=== PATIENT | male | born 1975 | race Caucasian/White ===

== ENCOUNTER 2017-03-16 15:28 | Emergency (ER) | payer OTHER ==
--- NOTE | 2017-03-16 16:02 | EDM.PDOC ---
ED HPI GENERAL MEDICAL PROBLEM - General Chief Complaint: ENT Problem Stated Complaint: TOOTHACHE Time Seen by Provider: 03/16/17 15:39 Source of Information: Reports: Patient History Limitations: Reports: No Limitations - History of Present Illness INITIAL COMMENTS - FREE TEXT/NARRATIVE: HISTORY AND PHYSICAL: History of present illness: Patient is a 42-year-old male who presents to the emergency room with complaints of left-sided facial tingling and numbness. He says this has been occurring intermittently since . During that time he did lose a dental filling to the left upper jaw line. He states there has been some numbness and tingling to that localized area that goes into the cheek bone and temporal area. He states that he has not seen a dentist in over a year and does have old dental caries and "things that need to be taken care of" scar as dental work. He denies any fever, chills, change in vision, headache, neurological signs and symptoms such as weakness or facial drooping. His speech is clear and intact. Full strength to upper and lower extremities without any deficits noted. Full facial movements and, musculature intact. Review of systems: As per history of present illness and below otherwise all systems reviewed and negative. Past medical history: As per history of present illness and as reviewed below otherwise noncontributory. Surgical history: As per history of present illness and as reviewed below otherwise noncontributory. Social history: No reported history of drug or alcohol abuse. Family history: As per history of present illness and as reviewed below otherwise noncontributory. Physical exam: General: Well-developed and well-nourished 42-year-old male. Alert and oriented. Nontoxic appearing and in no acute distress. HEENT: Atraumatic, normocephalic, pupils reactive, negative for conjunctival pallor or scleral icterus, mucous membranes moist, throat clear, neck supple, nontender, trachea midline. Patient has poor dental hygiene and is missing #9, dental decay to #12-13. Patient has no TMJ symptoms. No temporal artery tenderness with palpation. No mastoid tenderness with palpation. Facial muscles are intact and without deficits. Speech is clear and Lungs: Clear to auscultation, breath sounds equal bilaterally, chest nontender. Heart: S1S2, regular rate and rhythm without murmur Abdomen: Soft, nondistended, nontender. Negative for masses or hepatosplenomegaly. Negative for costovertebral tenderness. Pelvis: Stable nontender. Genitourinary: Deferred. Rectal: Deferred. Extremities: Atraumatic, negative for cords or calf pain. Neurovascular unremarkable. Neuro: Awake, alert, oriented. Cranial nerves II through XII unremarkable. Cerebellum unremarkable. Motor and sensory unremarkable throughout. Exam nonfocal. Patient has multiple dental caries and has some dental Decay to #12 through 13. This is the area which his pain starts and the numbness and tingling comes from there into the cheek bone and up into the amish. He has no temporal artery or [place] tenderness upon palpation. He does not appear to have any Gonzalez's palsy symptoms as this has been going on and off since January. We did review the signs and symptoms that would prompt him to come back to the emergency room or follow-up with the clinic if he felt sweats early Gonzalez's palsy. We'll treat as a dental abscess. Encouraged him to follow up with the dentist for definitive care. He voices understanding and is agreeable. Diagnostics: [] Therapeutics: [] Impression: Dental Abscess Neuralgia Plan: 1. Please take the antibiotic as directed. Tramadol has been prescribed for you for pain management. Medication may cause drowsiness so do not take it with driving or needing to be functioning at work. 2. See a dentist for definitive care as he may need dental extraction. 3. Please keep in mind the signs and symptoms as we discussed of Gonzalez's palsy. Your symptoms do not correlate with that at this time but please be aware of them. 4. Return to the ED as needed and as discussed. Definitive disposition and diagnosis as appropriate pending reevaluation and review of above. Duration: Week(s):, Chronic Location: Reports: Face right upper Pain Score (Numeric/FACES): 8 - Related Data Allergies Allergy/AdvReac Type Severity Reaction Status Date / Time cefaclor [From [facility]] Allergy Hives Verified 03/16/17 15:40 Home Meds: Home Meds . [No Known Home Meds] 03/16/17 [History] Past Medical History - Past Health History Medical/Surgical History: Denies Medical/Surgical History Social & Family History - Family History Family Medical History: Noncontributory - Tobacco Use Smoking Status *Q: Current Every Day Smoker Years of Tobacco use: 15 Packs/Tins Daily: 0.5 - Caffeine Use Caffeine Use: Reports: Coffee - Recreational Drug Use Recreational Drug Use: No ED ROS ENT - Review of Systems Review Of Systems: ROS reveals no pertinent complaints other than HPI. ED EXAM, ENT - Physical Exam Exam: See Below (See dictation) Course - Vital Signs Last Recorded V/S: Last Vital Signs Temp 97.6 F 03/16/17 15:41 Pulse 88 03/16/17 15:41 Resp 20 03/16/17 15:41 BP 130/69 03/16/17 15:41 Pulse Ox 100 03/16/17 15:41 Departure - Departure Time of Disposition: 16:05 Disposition: Home, Self-Care 01 Clinical Impression: Neuralgia, Dental abscess - Discharge Information Referrals: PCP,None [Primary Care Provider] - Forms: ED Department Discharge Additional Instructions: My general discharge The following information is given to patients seen in the emergency department who are being discharged to home. This information is to outline your options for follow-up care. We provide all patients seen in our emergency department with a follow-up referral. The need for follow-up, as well as the timing and circumstances, are variable depending upon the specifics of your emergency department visit. If you don't have a primary care physician on staff, we will provide you with a referral. We always advise you to contact your personal physician following an emergency department visit to inform them of the circumstance of the visit and for follow-up with them and/or the need for any referrals to a consulting specialist. The emergency department will also refer you to a specialist when appropriate. This referral assures that you have the opportunity for follow-up care with a specialist. All of these measure are taken in an effort to provide you with optimal care, which includes your follow-up. Under all circumstances we always encourage you to contact your private physician who remains a resource for coordinating your care. When calling for follow-up care, please make the office aware that this follow-up is from your recent emergency room visit. If for any reason you are refused follow-up, please contact the [facility] Emergency Department at and asked to speak to the emergency department charge nurse. [facility] [address] [place] [id number] 1. Please take the antibiotic as directed. Tramadol has been prescribed for you for pain management. Medication may cause drowsiness so do not take it with driving or needing to be functioning at work. 2. See a dentist for definitive care as he may need dental extraction. 3. Please keep in mind the signs and symptoms as we discussed of Gonzalez's palsy. Your symptoms do not correlate with that at this time but please be aware of them. 4. Return to the ED as needed and as discussed.
[2017-03-16] MEDS ORDERED: Lidocaine 2% Viscous Solution 15 ML Cup PO ONE (16:20)
[2017-03-16] MEDS ORDERED: Benzocaine 20% Topical Spray UD MUCMEM ONE (16:20)
--- NOTE | 2017-03-16 16:20 | EDM.PDOC ---
ED HPI GENERAL MEDICAL PROBLEM - General Chief Complaint: ENT Problem Stated Complaint: TOOTHACHE Time Seen by Provider: 03/16/17 15:39 Source of Information: Reports: Patient History Limitations: Reports: No Limitations - History of Present Illness INITIAL COMMENTS - FREE TEXT/NARRATIVE: HISTORY AND PHYSICAL: History of present illness: Patient is a 42-year-old male who presents to the emergency room with complaints of left upper dental pain, swelling and redness. He states he has an appointment next week with a dentist but is unable to bear the "pain". He denies any fever, chills, chest pain or shortness of breath. Denies any abdominal pain, nausea, vomiting or diarrhea. Denies any throat pain or ear pain. Review of systems: As per history of present illness and below otherwise all systems reviewed and negative. Past medical history: As per history of present illness and as reviewed below otherwise noncontributory. Surgical history: As per history of present illness and as reviewed below otherwise noncontributory. Social history: No reported history of drug or alcohol abuse. Family history: As per history of present illness and as reviewed below otherwise noncontributory. Physical exam: Gen.: Well-developed and well-nourished 42-year-old male. Alert and oriented. Nontoxic appearing and in no acute distress. General: Well-developed and well-nourished 42-year-old male. Alert and oriented. Nontoxic appearing and in no acute distress. HEENT: Atraumatic, normocephalic, pupils reactive, negative for conjunctival pallor or scleral icterus, mucous membranes moist, throat clear, neck supple, nontender, trachea midline. Patient has poor dental hygiene and is missing #11- 12 (has errythmea and soft tissue swelling). Patient has no TMJ symptoms. No temporal artery tenderness with palpation. No mastoid tenderness with palpation. Facial muscles are intact and without deficits. Speech is clear and Lungs: Clear to auscultation, breath sounds equal bilaterally, chest nontender. Heart: S1S2, regular rate and rhythm without murmur Abdomen: Soft, nondistended, nontender. Negative for masses or hepatosplenomegaly. Negative for costovertebral tenderness. Pelvis: Stable nontender. Genitourinary: Deferred. Rectal: Deferred. Extremities: Atraumatic, negative for cords or calf pain. Neurovascular unremarkable. Neuro: Awake, alert, oriented. Cranial nerves II through XII unremarkable. Cerebellum unremarkable. Motor and sensory unremarkable throughout. Exam nonfocal. Encourage patient to keep his dentist appointment for next week. We'll place the patient on clindamycin and give some tramadol for pain management. He does need to see the dentist for definitive care. He voices understanding and is agreeable to plan of care. Diagnostics: [] Therapeutics: [] Impression: Dental Abscess Plan: 1. Please take the antibiotic as directed. Tramadol has been prescribed for you for pain management. Medication may cause drowsiness so do not take it with driving or needing to be functioning at work. 2. See a dentist for definitive care as he may need dental extraction. 3. Return to the ED as needed and as discussed. Definitive disposition and diagnosis as appropriate pending reevaluation and review of above. Duration: Day(s): Location: Reports: Face right upper Pain Score (Numeric/FACES): 8 - Related Data Allergies Allergy/AdvReac Type Severity Reaction Status Date / Time cefaclor [From [facility]] Allergy Hives Verified 03/16/17 15:40 Home Meds: Home Meds . [No Known Home Meds] 03/16/17 [History] Past Medical History - Past Health History Medical/Surgical History: Denies Medical/Surgical History Social & Family History - Family History Family Medical History: Noncontributory - Tobacco Use Smoking Status *Q: Current Every Day Smoker Years of Tobacco use: 15 Packs/Tins Daily: 0.5 - Caffeine Use Caffeine Use: Reports: Coffee - Recreational Drug Use Recreational Drug Use: No ED ROS ENT - Review of Systems Review Of Systems: ROS reveals no pertinent complaints other than HPI. ED EXAM, ENT - Physical Exam Exam: See Below (See dictation) Course - Vital Signs Last Recorded V/S: Last Vital Signs Temp 97.6 F 03/16/17 15:41 Pulse 88 03/16/17 15:41 Resp 20 03/16/17 15:41 BP 130/69 03/16/17 15:41 Pulse Ox 100 03/16/17 15:41 Departure - Departure Time of Disposition: 16:19 Disposition: Home, Self-Care 01 Clinical Impression: Dental abscess - Discharge Information Instructions: Dental Abscess, [id number] Referrals: PCP,None [Primary Care Provider] - Forms: ED Department Discharge Additional Instructions: My general discharge The following information is given to patients seen in the emergency department who are being discharged to home. This information is to outline your options for follow-up care. We provide all patients seen in our emergency department with a follow-up referral. The need for follow-up, as well as the timing and circumstances, are variable depending upon the specifics of your emergency department visit. If you don't have a primary care physician on staff, we will provide you with a referral. We always advise you to contact your personal physician following an emergency department visit to inform them of the circumstance of the visit and for follow-up with them and/or the need for any referrals to a consulting specialist. The emergency department will also refer you to a specialist when appropriate. This referral assures that you have the opportunity for follow-up care with a specialist. All of these measure are taken in an effort to provide you with optimal care, which includes your follow-up. Under all circumstances we always encourage you to contact your private physician who remains a resource for coordinating your care. When calling for follow-up care, please make the office aware that this follow-up is from your recent emergency room visit. If for any reason you are refused follow-up, please contact the [facility] Emergency Department at and asked to speak to the emergency department charge nurse. [facility] Primary Care [address] [place] [id number] 1. Please take the antibiotic as directed. Tramadol has been prescribed for you for pain management. Medication may cause drowsiness so do not take it with driving or needing to be functioning at work. 2. See a dentist for definitive care as he may need dental extraction. 3. Return to the ED as needed and as discussed.
== END 2017-03-16 16:30 | disposition home or self-care (01) ==
LOC: MW.ED 15:28
DX: K04.7 Periapical abscess without sinus (principal); F17.210 Nicotine dependence, cigarettes, uncomplicated; Z88.1 Allergy status to other antibiotic agents
CPT/HCPCS: 99282; A9270; 99283